=== PATIENT | male | born 1965 | race Two or more races ===

== ENCOUNTER 2024-04-23 01:08 | Emergency (ER) | payer MEDICAID, SELFPAY ==
[2024-04-23 01:23] VITALS: BP 169/106; PULSE 84; RESP 18; TEMP 36.5; O2SAT 98; BMI 26.0
--- NOTE | 2024-04-23 01:32 | PD.EDSKIN ---
ED Skin Abcess FB-RME/HPI General Chief complaint: Skin/Abscess/Foreign Body Stated complaint: RASH Time Seen by Provider: 04/23/24 01:22 Source: patient Arrival date/time: 04/23/24 01:08 58-year-old male with no significant past medical history presents emergency department complaining of generalized rash that started yesterday approximately at 4 PM after getting out of work. 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 Patient denies any new detergent, lotions, medications, foods, or any new chemicals that might of caused rash. Patient denies any fever, chills, cough, shortness of breath, sore throat, or any other associated symptom. Mode of arrival: ambulatory Limitations: no limitations Related Data Home Medications ?Medication ?Instructions ?Recorded ?Confirmed lisinopril 5 mg tablet 5 mg PO QDAY 07/05/20 07/05/20 Previous Rx's ?Medication ?Instructions ?Recorded albuterol sulfate 90 mcg/actuation 2 puff inhalation QID PRN 07/06/20 aerosol inhaler (ProAir HFA) shortness of breath or wheezing #6.7 grams amoxicillin 875 mg-potassium 1 tab PO BID #7 tabs 07/06/20 clavulanate 125 mg tablet dexamethasone 6 mg tablet 6 mg PO QDAY #7 tabs 07/06/20 doxycycline hyclate 100 mg tablet 100 mg PO BID #7 tabs 07/06/20 lisinopril 2.5 mg tablet 5 mg (2 x 2.5 mg) PO QDAY #30 tabs 07/06/20 metformin 500 mg tablet 500 mg PO BID #60 tabs 07/06/20 diphenhydramine HCl 25 mg capsule 25 mg PO TID PRN itching 7 days 04/23/24 (Benadryl) #10 caps prednisone 20 mg tablet 20 mg PO BID 3 days #6 tabs 04/23/24 Allergies Allergy/AdvReac Type Severity Reaction Status Date / Time No Known Allergies Allergy Unverified 10/01/22 19:59 Review of Systems Review of Systems Systems Reviewed: All systems reviewed, normal except as documented Constitutional Constitutional: Reports system reviewed and no additional complaints, except as documented, Denies body ache(s), Denies chills and Denies fever(s) Eyes Eyes: Reports system reviewed and no additional complaints, except as documented and Denies change in vision ENT Ears, Nose, Mouth, and Throat: Reports system reviewed and no additional complaints, except as documented, Denies disequilibrium, Denies dizziness, Denies sore throat and Denies vertigo Cardiovascular Cardiovascular: Reports system reviewed and no additional complaints, except as documented, Denies chest pain and Denies dyspnea Respiratory Respiratory: Reports system reviewed and no additional complaints, except as documented, Denies chest congestion, Denies cough and Denies dyspnea Gastrointestinal Gastrointestinal: Reports system reviewed and no additional complaints, except as documented, Denies abdominal pain, Denies nausea and Denies vomiting Musculoskeletal Musculoskeletal: Reports system reviewed and no additional complaints, except as documented, Denies abnormal gait and Denies arthralgias Integumentary/Breasts Skin/Breast: Reports system reviewed and no additional complaints, except as documented, Denies erythema, Reports rash and Denies wounds Neurologic Neurologic: Reports system reviewed and no additional complaints, except as documented, Denies abnormal gait, Denies disequilibrium, Denies dizziness and Denies vertigo Past Medical History Past Medical History NEUROLOGIC: Negative Seizures CARDIAC: Positive Hypertension; Negative Cardiac Disorders or Congestive Heart Failure RESPIRATORY: Negative Chronic Obstructive Pulmonary Disease (COPD) or Asthma GENITOURINARY: Negative Renal Disease ENDOCRINE: Negative Diabetes Mellitus Type 1 or Diabetes Mellitus Type 2 HEMATOLOGIC: Negative Sickle Cell Disease Social History SMOKING STATUS: Never smoker ED Exam General Limitations: Present no limitations General appearance: Present alert and in no apparent distress Head Head exam: Present atraumatic Eye Eye exam: Present normal appearance, PERRL and EOMI ENT ENT exam: Present normal exam, normal oropharynx and mucous membranes moist Neck Neck exam: Present normal inspection, full ROM and trachea midline Chest Chest inspection: Present normal inspection and symmetric chest wall rise Respiratory Respiratory exam: Present normal lung sounds bilaterally Cardiovascular Cardiovascular exam: Present regular rate, normal rhythm and normal heart sounds Abdominal Exam Abdominal exam: Present soft and normal bowel sounds Extremities Exam Extremities exam: Present normal inspection and full ROM Back Exam Back exam: Present normal inspection and full ROM Neurological Exam Neurological exam: Present alert, oriented X3 and CN II-XII intact Psychiatric Psychiatric exam: Present normal affect and normal mood Skin Skin exam: Present warm, dry, intact and rash Expanded Skin Exam Type of lesion: Present rash Distribution: Present generalized, thorax, chest, back, abdomen, LLE, RUE and RLE Description: Present macular and purpuric Course Quality Measures none Orders Category Date Time Status Dexamethasone Inj [Decadron Inj] Med 04/23/24 01:30 Discontinued 10 mg IM X1 ONE DiphenhydrAMINE [Benadryl] Med 04/23/24 01:30 Discontinued 25 mg PO X1 ONE Famotidine [Pepcid] Med 04/23/24 01:30 Discontinued 40 mg PO X1 ONE Vital Signs Vital signs: Vital Signs Temperature 97.7 F 04/23/24 01:23 Pulse Rate 84 04/23/24 01:23 Respiratory Rate 18 04/23/24 01:23 Blood Pressure 169/106 H 04/23/24 01:23 Pulse Oximetry (%) 98 04/23/24 01:23 Oxygen Delivery Method Room Air 04/23/24 01:23 98% room air within normal limits Skin / Abscess / Foreign Body MDM Narrative MDM Narrative:: 58-year-old male with no significant past medical history presents emergency department complaining of generalized rash that started yesterday approximately at 4 PM after getting out of work. 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 Patient denies any new detergent, lotions, medications, foods, or any new chemicals that might of caused rash. Patient denies any fever, chills, cough, shortness of breath, sore throat, or any other associated symptom. Patient appears nontoxic and hemodynamically stable. Patient not appear to be in any respiratory distress. Patient given steroids and Benadryl with significant improvement in rash. Patient discharged home on antihistamines and short-term steroids and instructed to follow-up with primary care provider in 24 to 48 hours and return to emergency department for any worsening symptoms or as needed. Patient data External records reviewed:: [facility] previous records Clinical information provided by:: patient Social determinants that could affect healthcare access:: none Patient has the following chronic illnesses:: N/A How is presenting disease/condition affected by chronic disease/condition?: no chronic disease Evaluation data The following diagnostics were reviewed and interpreted by me:: other (specify) (N/A) Lab and/or radiology exams considered but not ordered:: N/A Interpretation Summary: N/A Medications / Prescriptions Medications or Prescriptions considered but not ordered:: Ordered Medication administrations:: Medication Administration History Discontinued Medications Dexamethasone Sodium Phosphate (Dexamethasone Sod Phos Inj 10 Mg/Ml Vial) 10 mg IM X1 ONE Stop: 04/23/24 01:31 Last Admin: 04/23/24 01:43 Dose: 10 mg Documented By: CVL Diphenhydramine HCl (Diphenhydramine 25 Mg Capsule) 25 mg PO X1 ONE Stop: 04/23/24 01:31 Last Admin: 04/23/24 01:43 Dose: 25 mg Documented By: CVL Famotidine (Famotidine 20 Mg Tablet) 40 mg PO X1 ONE Stop: 04/23/24 01:31 Last Admin: 04/23/24 01:43 Dose: 40 mg Documented By: CVL Given Consultations Consultation(s) initiated? (list below): No Diagnosis Skin/Abscess Differential Diagnosis: viral exanthem, urticaria, allergic reaction to drug, eczema and contact dermatitis Most likely diagnosis given after review of the tests above:: Allergic reaction Admission Indicated Admission indicated?: not indicated Admission Request Was there a request for admission?: No Disposition Plan Disposition Plan: Discharge Discharge Attestation Discharge Attestation: The patient and all family members were given an opportunity to ask questions and understood the discharge instructions. Discharge instructions specifically effects, indications for sooner follow up or return to the emergency department, and the expected course of current diagnosis. Patient condition: Stable Discharge Plan Plan Patient Disposition: HOME (Self Care) Disposition Comment: Stable Prescriptions/Referrals Prescriptions/Med Rec: New prednisone 20 mg tablet 20 mg PO BID 3 Days Qty: 6 0RF Taper: Prednisone Taper 20 mg DAILY for 2 Days and 0 Hour 10 mg DAILY for 2 Days and 0 Hour 5 mg DAILY for 7 Days and 0 Hour diphenhydramine HCl [Benadryl] 25 mg capsule 25 mg PO TID PRN (Reason: itching) 7 Days Qty: 10 0RF No Action lisinopril 5 mg Tablet 5 mg PO QDAY amoxicillin-pot clavulanate 875-125 mg Tablet 1 tab PO BID Qty: 7 0RF dexamethasone 6 mg Tablet 6 mg PO QDAY Qty: 7 0RF lisinopril 2.5 mg Tablet 5 mg PO QDAY Qty: 30 0RF doxycycline hyclate 100 mg Tablet 100 mg PO BID Qty: 7 0RF albuterol sulfate [ProAir HFA] 90 mcg/actuation HFA aerosol inhaler 2 puff inhalation QID PRN (Reason: shortness of breath or wheezing) Qty: 6.7 0RF metformin 500 mg tablet 500 mg PO BID Qty: 60 0RF Referrals: No Primary/Family,Physician [Primary Care Provider] - In 1 week Problem List Clinical Impression: Allergic reaction Patient/Caregiver Discharge Instructions Education Materials: ED General Allergic Reactions Additional Instructions: Take medication as prescribed. Please follow-up with primary care provider in 24 to 48 hours. Return to emergency department for any worsening symptoms or as needed. Print Language: Luxembourger Stand Alone Forms: L[employer] Award Info., Patient Portal Info Letter PA/MYSQL DATABASE DEVELOPER Supervising Physician PA/MYSQL DATABASE DEVELOPER Supervising Physician: Dr. Carmona
[2024-04-23] MEDS: DiphenhydrAMINE 25 MG CAPSULE PO (01:43)
[2024-04-23] MEDS: DEXAMETHASONE SOD PHOS INJ 10 MG/ML VIAL IM (01:43)
[2024-04-23] MEDS: FAMOTIDINE 20 MG TABLET 40 MG PO (01:43)
[2024-04-23 02:35] VITALS: RESP 18
== END 2024-04-23 02:36 | disposition home or self-care (01) ==
PROVIDERS: Emergency Provider Emergency Medicine
DX: R21 Rash and other nonspecific skin eruption (principal)
CPT/HCPCS: 96372; 99283; J1100; A9270